=== PATIENT | male | born 1995 | race Caucasian/White ===

== ENCOUNTER 2017-05-08 10:45 | Emergency (ER) | payer SELFPAY | END 2017-05-08 11:01 | disposition home or self-care (01) | LOC: BURERS 10:45 | DX: K02.9 Dental caries, unspecified (principal); F17.210 Nicotine dependence, cigarettes, uncomplicated | CPT/HCPCS: 99282 ==

== ENCOUNTER 2021-12-18 17:56 | Emergency (ER) | payer SELFPAY ==
[2021-12-18] MEDS ORDERED: AMOXicillin 250 MG CAP ONE (18:22)
== END 2021-12-18 18:26 | disposition home or self-care (01) ==
LOC: BURERS 17:56
DX: K02.9 Dental caries, unspecified (principal); F17.210 Nicotine dependence, cigarettes, uncomplicated
CPT/HCPCS: 99282

== ENCOUNTER 2022-04-18 00:17 | Emergency (ER) | payer SELFPAY ==
[2022-04-18] MEDS ORDERED: Ondansetron ODT 4 MG TAB ONE (01:02)
[2022-04-18] MEDS ORDERED: Ketorolac Tromethamine 30 MG/ML VIAL ONE (01:02)
== END 2022-04-18 01:16 | disposition home or self-care (01) ==
LOC: BURERS 00:17
DX: U07.1 COVID-19 (principal); F17.210 Nicotine dependence, cigarettes, uncomplicated
CPT/HCPCS: 96372; 99284; J1885; Q0162; U0003; U0005

== ENCOUNTER 2025-04-16 20:13 | Emergency (ER) | payer BC ==
[2025-04-16] MEDS ORDERED: Ketorolac Tromethamine 30 MG (1 mL) VIAL ONE (22:27)
[2025-04-16] MEDS ORDERED: Amoxicillin/Potassium Clav 875 MG TAB ONE (22:27)
== END 2025-04-16 22:45 | disposition home or self-care (01) ==
LOC: BURERS 20:13
DX: K04.7 Periapical abscess without sinus (principal); F17.210 Nicotine dependence, cigarettes, uncomplicated
CPT/HCPCS: 96372; 99282; J1885